=== PATIENT | female | born 1965 | race Caucasian/White ===

== ENCOUNTER 2022-03-09 10:26 | Outpatient (CLI) | payer BC ==
[~2022-03-09 10:26] MED LIST: Iopamidol 370 76% 100 ML VIAL ONE
== END 2022-03-09 10:27 | disposition home or self-care (01) ==
LOC: CSHCT 10:26
PROVIDERS: ATTEND Family Medicine
DX: R10.30 Lower abdominal pain, unspecified (principal); K92.1 Melena; K83.8 Other specified diseases of biliary tract; J47.9 Bronchiectasis, uncomplicated; K76.0 Fatty (change of) liver, not elsewhere classified; R16.0 Hepatomegaly, not elsewhere classified; D73.89 Other diseases of spleen; J98.4 Other disorders of lung; M47.816 Spondylosis without myelopathy or radiculopathy, lumbar region; Z98.890 Other specified postprocedural states
CPT/HCPCS: 74177; Q9967

== ENCOUNTER 2025-04-07 11:20 | Outpatient (CLI) | payer BC | END 2025-04-07 11:21 | disposition home or self-care (01) | LOC: CSHCP 11:20 | PROVIDERS: ATTEND Internal Medicine Critical Care Medicine | DX: J44.9 Chronic obstructive pulmonary disease, unspecified (principal) | CPT/HCPCS: 94060; 94664; 94726; 94729; 94760 ==